=== PATIENT | male | born 1975 | race Caucasian/White ===

== ENCOUNTER 2018-01-12 09:37 | Emergency (ER) | payer SELFPAY ==
[~2018-01-12] VITALS: Ht 177.8 cm; Wt 82.0 kg
[~2018-01-12 09:37] MED LIST: CEPH500C3 PO; SULF1TAB47 PO
[2018-01-12 09:45] VITALS: BP 141/74; PULSE 87; RESP 17; TEMP 97.8; O2SAT 100
[2018-01-12] MEDS ORDERED: ORPHENADRINE INJ 60 MG/2 ML AMP IM ONE (10:45)
[2018-01-12] MEDS ORDERED: KETOROLAC TROMETHAMINE 60 MG/2 ML (IM) VIAL IM ONE (10:45)
[2018-01-12] MEDS ORDERED: IBUP1TAB7 PO (11:01)
[2018-01-12] MEDS ORDERED: ROBA750T PO (11:01)
[2018-01-12] MEDS ORDERED: TRAM50 PO (11:01)
--- NOTE | 2018-01-12 11:02 | PD ---
HPI Chief Complaint: Back/ Neck Pain or Injury Time Seen by Provider: 10:30 Travel History International Travel<30 days: No Contact w/Intl Traveler<30days: No Traveled to known affect area: No History of Present Illness HPI 42-year-old male here with left low back pain times one day. He reports he was lifting heavy bags of concrete into the back of his truck yesterday evening when pain originated. Pain is localized to the low back without and described as aching. He denies paresthesia or weakness in the extremities. No fever or chills. No incontinence. No saddle anesthesia. Symptoms are moderate, worse with movement and slightly relieved with rest and Naprosyn. PFSH Past Medical History Blood Disorders: No Depression: Yes (depressed for a couple weeks) Cancer: No Cardiovascular Problems: No Diminished Hearing: No Endocrine: No Genitourinary: No Immune Disorder: No Musculoskeletal: Yes Neurologic: No Psychiatric: Yes Reproductive: No Respiratory: No Past Surgical History AICD: No Arteriovenous Shunt: No Insulin Pump: No Joint Replacement: No Neurologic Surgery: Yes (HEAD TRAUMA/INJURY 2005) Pacemaker: No Other Surgery: Yes (FACIAL RECONSTRUCTION) Social History Alcohol Use: No Tobacco Use: Yes (DIP) Substance Use: No Allergies-Medications (Allergen,Severity, Reaction): Coded Allergies: No Known Allergies (Verified Adverse Reaction, Unknown, 01/12/18) Reported Meds & Prescriptions Reported Meds & Active Scripts Active No Active Prescriptions or Reported Medications Review of Systems Except as stated in HPI: all other systems reviewed are Neg General / Constitutional: No: Fever Eyes: No: Visual changes HENT: No: Headaches Cardiovascular: No: Chest Pain or Discomfort Respiratory: No: Shortness of Breath Gastrointestinal: No: Abdominal Pain Genitourinary: No: Dysuria Physical Exam Narrative GENERAL: Alert well-appearing 42-year-old male SKIN: Warm and dry. HEAD: Normocephalic. EYES: No injection or drainage. NECK: Supple CARDIOVASCULAR: Regular rate and rhythm RESPIRATORY: Breath sounds equal bilaterally. No accessory muscle use. GASTROINTESTINAL: Abdomen soft, non-tender, nondistended. MUSCULOSKELETAL: No cyanosis, or edema. Normal strength and sensation in lower extremities. Negative straight leg raise. BACK: +TTP left paravertebral musculature. No midline spine tenderness. Without obvious deformity. No CVA tenderness. Data Data Last Documented VS Vital Signs Date Time Temp Pulse Resp B/P (MAP) Pulse Ox O2 Delivery O2 Flow Rate FiO2 01/12/18 09:45 97.8 87 17 141/74 (96) 100 Room Air Orders Orders Ketorolac Inj (Toradol Inj) (01/12/18 10:45) Orphenadrine Inj (Norflex Inj) (01/12/18 10:45) MDM Medical Decision Making Medical Screen Exam Complete: Yes Emergency Medical Condition: Yes Differential Diagnosis Lumbar strain, herniated disc, DJD, lumbar spine fracture Narrative Course 42-year-old male with lumbar strain. He has a normal neurologic exam. He is given a shot of Toradol and Norflex and reports symptom improvement. He is stable rate discharge. Diagnosis Primary Impression: Lumbar strain Qualified Codes: S39.012A - Strain of muscle, fascia and tendon of lower back , initial encounter Referrals: Primary Care Physician Additional Instructions: Medication as directed. Avoid Heavy lifting or strenuous activity. Follow-up with her primary doctor. Scripts Tramadol (Ultram) 50 Mg Tab 50 MG PO Q6H Y for PAIN, #10 TAB 0 Refills Prov: Etta Curtis 01/12/18 Methocarbamol (Robaxin) 750 Mg Tab 750 MG PO QID for Muscle Spasm, #12 TAB 0 Refills Prov: Etta Curtis 01/12/18 Ibuprofen (Ibuprofen) 800 Mg Tab 800 MG PO Q6HR Y for PAIN, #40 TAB 0 Refills Prov: Etta Curtis 01/12/18 Disposition: 01 DISCHARGE HOME Condition: Stable Etta Curtis Jan 12, 2018 11:02
== END 2018-01-12 11:21 | disposition home or self-care (01) ==
LOC: PHED 09:37 → PHEFT 11:21
DX: S39.012A Strain of muscle, fascia and tendon of lower back, initial encounter (principal); X50.0XXA Overexertion from strenuous movement or load, initial encounter
CPT/HCPCS: 96372; 99284; J1885; J2360